=== PATIENT | female | born 1955 | race Caucasian/White ===

== ENCOUNTER 2019-06-06 21:19 | Emergency (ER) | payer BC, OTHER ==
[2019-06-06] MEDS ORDERED: Meclizine 25 MG Tab PO ONE (21:20)
[2019-06-06] MEDS ORDERED: Prochlorperazine 10 MG/2 ML SDV IM ONE (21:32)
[2019-06-06] MEDS ORDERED: hydrOXYzine HCl 50 MG/ML SDV IM ONE (21:32)
--- NOTE | 2019-06-06 21:40 | EDM.PDOC ---
ED HPI GENERAL MEDICAL PROBLEM - General Stated Complaint: VOMITING Time Seen by Provider: 06/06/19 21:38 Source of Information: Reports: Patient History Limitations: Reports: No Limitations - History of Present Illness INITIAL COMMENTS - FREE TEXT/NARRATIVE: Ana Luisa complains of vertiginous episodes that started today. Spinning sensation, helped by closing eyes and laying down.Associated with vomiting x 3. No headache ,fever or chills. - Related Data Allergies Allergy/AdvReac Type Severity Reaction Status Date / Time No Known Allergies Allergy Verified 06/06/19 22:04 ED ROS GENERAL - Review of Systems Review Of Systems: ROS reveals no pertinent complaints other than HPI. ED EXAM, DIZZINESS - Physical Exam Exam: See Below Exam Limited By: No Limitations General Appearance: Alert, WD/WN Eye Exam: Bilateral Eye: PERRL Nystagmus: constant Nose: Normal Inspection Throat/Mouth: Normal Inspection Neck: Normal Inspection Respiratory/Chest: No Respiratory Distress, Lungs Clear Cardiovascular: Normal Peripheral Pulses EKG INTERPRETATION EKG Date: 06/06/19 Rhythm: NSR Course - Vital Signs Text/Narrative:: I gave her 1 L NS,and 5 mg of IV valium. She had some sedation,but felt better. Last Recorded V/S: Last Vital Signs Temp 97.8 F 06/06/19 21:40 Pulse 73 06/06/19 21:40 Resp 18 06/06/19 21:40 BP 153/69 H 06/06/19 21:40 Pulse Ox 96 06/06/19 21:40 - Orders/Labs/Meds Orders: Active Orders 24 hr Category Date Time Status EKG Documentation Completion [RC] ASDIRECTED Care 06/06/19 21:32 Active Sodium Chloride 0.9% [Normal Saline] 1,000 ml Med 06/06/19 22:30 Active IV ASDIRECTED EKG 12 Lead [EK] Routine Ther 06/06/19 21:31 Ordered Medication Orders Sodium Chloride (Normal Saline) 1,000 mls @ 999 mls/hr IV ASDIRECTED WALKER Last Admin: 06/06/19 22:39 Dose: 999 mls/hr Labs: Laboratory Tests 06/06/19 06/06/19 Range/Units 21:48 21:48 WBC 6.7 (4.5-12.0) X10-3/uL RBC 4.61 (3.23-5.20) x10(6)uL Hgb 14.0 (11.5-15.5) g/dL Hct 41.9 (30.0-51.3) % MCV 90.9 (80-96) fL MCH 30.4 (27.7-33.6) pg MCHC 33.5 (32.2-35.4) g/dL RDW 11.7 (11.5-15.5) % Plt Count 233 (125-369) X10(3)uL MPV 9.6 (7.4-10.4) fL Neut % (Auto) 83.7 H (46-82) % Lymph % (Auto) 12.1 L (13-37) % [place] % (Auto) 3.5 L (4-12) % Eos % (Auto) 0 L (1.0-5.0) % Baso % (Auto) 0 (0-2) % Neut # (Auto) 5.7 (1.6-8.3) # Lymph # (Auto) 0.8 (0.6-5.0) # [place] # (Auto) 0.2 (0.0-1.3) # Eos # (Auto) 0.0 (0.0-0.8) # Baso # (Auto) 0.0 (0.0-0.2) # Sodium 137 (135-145) mmol/L Potassium 3.8 (3.5-5.3) mmol/L Chloride 103 (100-110) mmol/L Carbon Dioxide 25 (21-32) mmol/L BUN 21 H (7-18) mg/dL Creatinine 0.9 (0.55-1.02) mg/dL Est Cr Clr Drug Dosing TNP Estimated GFR (MDRD) > 60 (>60) BUN/Creatinine Ratio 23.3 H (9-20) Glucose 181 H (80-116) mg/dL Calcium 9.2 (8.6-10.2) mg/dL Meds: Medications Generic Name Dose Route Start Last Admin Trade Name Freq PRN Reason Stop Dose Admin Sodium Chloride 1,000 mls @ 999 mls/hr 06/06/19 22:30 06/06/19 22:39 Normal Saline IV 999 mls/hr ASDIRECTED WALKER Administration Discontinued Medications Generic Name Dose Route Start Last Admin Trade Name Freq PRN Reason Stop Dose Admin Diazepam 10 mg 07/27/19 23:00 06/06/19 23:31 Valium IV 06/06/19 23:01 Not Given ONETIME ONE Diazepam 5 mg 06/06/19 23:22 06/06/19 23:28 Valium IV 06/06/19 23:23 5 mg ONETIME ONE Administration Hydroxyzine HCl 50 mg 06/06/19 21:32 06/06/19 22:12 Vistaril IM 06/06/19 21:33 50 mg ONETIME ONE Administration Prochlorperazine Edisylate 10 mg 06/06/19 21:32 06/06/19 22:11 Compazine IM 06/06/19 21:33 10 mg ONETIME ONE Administration Departure - Departure Time of Disposition: 23:57 Disposition: Home, Self-Care 01 Condition: Good Clinical Impression: Vertigo - Discharge Information Referrals: Elma Benavidez, INTERMISSION COORDINATOR [Primary Care Provider] - - Problem List & Annotations (1) BPV (benign positional vertigo) SNOMED Code(s): 192383775 Code(s): H81.10 - BENIGN PAROXYSMAL VERTIGO, UNSPECIFIED EAR Status: Acute Current Visit: Yes Qualifiers: Laterality: unspecified laterality Qualified Code(s): H81.10 - Benign paroxysmal vertigo, unspecified ear - Problem List Review Problem List Initiated/Reviewed/Updated: Yes - My Orders Last 24 Hours: My Active Orders 06/06/19 21:31 EKG 12 Lead [EK] Routine 06/06/19 21:32 EKG Documentation Completion [RC] ASDIRECTED 06/06/19 22:30 Sodium Chloride 0.9% [Normal Saline] 1,000 ml IV ASDIRECTED - Assessment/Plan Last 24 Hours: My Active Orders 06/06/19 21:31 EKG 12 Lead [EK] Routine 06/06/19 21:32 EKG Documentation Completion [RC] ASDIRECTED 06/06/19 22:30 Sodium Chloride 0.9% [Normal Saline] 1,000 ml IV ASDIRECTED Plan: DC home. [place] better after IV Valium,1 L crystalloid
[2019-06-06] MEDS ORDERED: Sodium Chloride 0.9% 1,000 ML IV SCH (22:30)
[2019-06-06] MEDS ORDERED: diazePAM 5 MG/ML MDV IV ONE ×2 (23:00→23:22)
== END 2019-06-07 00:33 | disposition home or self-care (01) ==
LOC: FB.ED 21:19
DX: R42 Dizziness and giddiness (principal)
CPT/HCPCS: 36415; 80048; 85025; 93005; 96361; 96372; 96374; 99284; A9270; J0780; J3360; J3410; J7030